=== PATIENT | male | born 1990 | race Caucasian/White ===

== ENCOUNTER 2020-10-11 06:58 | Emergency (ER) | payer OTHER ==
[2020-10-11 07:39] VITALS: BP 125/75; PULSE 75; TEMP 98.5; BMI 22.0
[2020-10-11 10:37] LABS: BASO % 0.8 % (0-2.0); EOS % 8.2 % (0-4.5); HEMATOCRIT 40.2 % (35.4-49); HEMOGLOBIN 13.1 GM/dL (11.7-16.9); LYMPH % 30.3 % (8-40); MCH 21.8 pg (25.7-33.7); MCHC 32.7 g/dl (32.0-35.9); MEAN CELL VOLUME 66.8 fl (80-96); MEAN PLT VOLUME 8.9 fl (7.5-11.1); MONO % 8.2 % (3.8-10.2); NEUT % 52.5 % (42.8-82.8); PLATELET COUNT 208 K/MM3 (134-434); RBC 6.01 M/mm3 (4.00-5.60); RDW 14.5 % (11.9-15.9); WHITE BLOOD COUNT 10.6 K/mm3 (4.0-10.0)
[2020-10-11 10:53] LABS: CHLORIDE 104 mmol/L (98-107); POTASSIUM 3.6 mmol/L (3.5-5.1); SODIUM 137 mmol/L (136-145)
[2020-10-11 10:56] LABS: ALBUMIN 3.8 g/dl (3.4-5.0); ANION GAP 4 MMOL/L (8-16); BLOOD UREA NITROGEN 10.6 mg/dL (7-18); CO2 29 mmol/L (21-32); GLUCOSE,RANDOM 93 mg/dL (74-106)
[2020-10-11 11:00] LABS: BILIRUBIN,TOTAL 0.3 mg/dL (0.2-1); CREATININE 0.7 mg/dL (0.55-1.3); SGOT/AST 11 U/L (15-37); SGPT/ALT 17 U/L (13-61)
[2020-10-11 11:01] LABS: ALK PHOS 72 U/L (45-117)
[2020-10-11 14:49] LABS: ANISOCYTOSIS 0; MACROCYTOSIS 0; OVALOCYTE 1+; PLATELET ESTIMATE NORMAL
== END 2020-10-11 11:37 | disposition home or self-care (01) ==
LOC: JER 06:58
DX: R50.9 Fever, unspecified (principal); R07.1 Chest pain on breathing; R05 Cough; Z11.52 Encounter for screening for COVID-19
CPT/HCPCS: 36415; 71046-TC-FY; 80053; 82550; 84484; 85025; 93005; 93010; 99285-25; C9803; U0003